=== PATIENT | male | born 1955 | race Hispanic/Latino ===

== ENCOUNTER 2023-03-23 09:45 | Emergency (ER) | payer OTHER, MEDICARE ==
[~2023-03-23] VITALS: Ht 175.3 cm; Wt 76.2 kg
[2023-03-23] MEDS ORDERED: KETOROLAC 30MG VIAL (30MG/ML) IM ONE (10:30)
[2023-03-23 12:47] VITALS: BP 121/72; PULSE 65; RESP 18; O2SAT 100
== END 2023-03-23 13:01 | disposition home or self-care (01) ==
LOC: EDH 09:45
DX: S60.222A Contusion of left hand, initial encounter (principal); M25.551 Pain in right hip; F10.10 Alcohol abuse, uncomplicated; Z98.890 Other specified postprocedural states; W18.2XXA Fall in (into) shower or empty bathtub, initial encounter; Y93.E1 Activity, personal bathing and showering; Y92.89 Other specified places as the place of occurrence of the external cause; Y99.8 Other external cause status
CPT/HCPCS: 99284; 73130; 73502; 96372; J1885